=== PATIENT | male | born 1995 | race African-American/Black ===

== ENCOUNTER 2016-12-30 03:39 | Emergency (ER) | payer OTHER ==
[~2016-12-30] VITALS: Ht 175.3 cm; Wt 76.2 kg
--- NOTE | 2016-12-30 03:56 | NUR ---
BB [id number] FROM [facility]. 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 PT AO TO NAME, REFUSED TO ANSWER QUESTIONS. RR EVEN AND UNLABORED. NO SOB NOTED. NAD NOTED. NO NVD AT THIS TIME. PT NOT DIAPHORETIC. PT PLACED ON MONITOR WAITING FOR MD NGUYEN
[2016-12-30] MEDS ORDERED: LORAZEPAM INJ 2 MG/ML VIAL IV ONE (04:00)
[2016-12-30] MEDS ORDERED: diphenhydrAMINE HCL 50 MG/ML VIAL ONE (04:18)
[2016-12-30] MEDS ORDERED: HALOPERIDOL LACTATE INJ 5 MG/ML VIAL ONE (04:18)
[2016-12-30] MEDS ORDERED: LORAZEPAM INJ 2 MG/ML VIAL ONE ×2 (04:22→04:43)
--- NOTE | 2016-12-30 04:27 | NUR ---
RECEIVED ATIVAN 2MG VIAL FROM KULWANT FAIR
[2016-12-30] MEDS ORDERED: HALOPERIDOL LACTATE INJ 5 MG/ML VIAL IM ONE (04:30)
[2016-12-30] MEDS ORDERED: diphenhydrAMINE HCL 50 MG/ML VIAL IM ONE (04:30)
[2016-12-30] MEDS ORDERED: LORAZEPAM INJ 2 MG/ML VIAL IM ONE (05:00)
--- NOTE | 2016-12-30 05:21 | NUR ---
Patient discharged to [employer] custody for transport to skilled nursing in stable condition. Written and verbal after care instructions given. Patient verbalizes understanding of instruction. Pt ambulatory with a steady gait. VSS, NAD noted on DC. Denies complaint on DC.
--- NOTE | 2016-12-30 05:25 | NUR ---
PT AND [employer] OFFICERS RETURNED INSIDE STATING THEY NEEDED TO WAIT FOR AMBULANCE TRANSPORT TO [facility].
--- NOTE | 2016-12-30 05:34 | NUR ---
CALLED [facility] FOR TRANSPORT TO [place]. ETA: [phone]
[2016-12-30 07:01] VITALS: BP 131/65
--- NOTE | 2016-12-30 07:04 | NUR ---
Patient is resting comfortably in bed with eyes closed. Easily aroused. VSS. [employer] at bedside under custody
--- NOTE | 2016-12-30 07:04 | NUR ---
REPORT GIVEN TO SHANITA ELLIOTT FOR TIFFANIE.
--- NOTE | 2016-12-30 07:31 | NUR ---
PT LEAVING VIA AMBULANCE TO [facility] WITH [employer] AND [employer] MACHINE HELPER IN STABLE CONDITION. NAD NOTED. VSS. NO FURTHER COMPLAINTS.
== END 2016-12-30 05:22 ==
LOC: ER 03:41
DX: R45.1 Restlessness and agitation (principal)
CPT/HCPCS: J1200; J1630; J2060